=== PATIENT | female | born 1980 | race Caucasian/White ===

== ENCOUNTER 2016-11-13 10:14 | Emergency (ER) | payer OTHER ==
[2016-11-13 10:59] LABS: BASO % 0.2 % (0.1-1.2); EOS # 0.1 10_X3_uL (0.0-0.4); EOS % 0.6 % (0.7-5.8); GRAN # 12.4 10_X3_uL (1.6-6.1); GRAN % 71.9 % (34.0-71.1); HEMATOCRIT 43.4 % (34-45); HEMOGLOBIN 14.8 g/dL (11.2-15.7); LYMPH # 3.3 10_X3_uL (1.2-3.7); LYMPH % 19.1 % (19.3-51.7); MEAN CORPUSCULAR HEMOGLOBIN 29.8 pg (27.0-33.0); MEAN CORPUSCULAR HGB CONC 34.1 g/dL (32.0-36.0); MEAN CORPUSCULAR VOLUME 87.3 fL (79-95); MEAN PLATELET VOLUME 10.4 fl (7.5-11.5); MONO # 1.4 10_X3_uL (0.2-0.9); MONO % 8.2 % (4.7-12.5); PLATELET COUNT 287 x10_3/uL (182-369); RED BLOOD COUNT 4.97 x10_6/uL (3.9-5.2); RED CELL DISTRIBUTION WIDTH 13.4 % (11.7-14.4); WHITE BLOOD COUNT 17.2 x10_3/uL (4.0-10.0)
[2016-11-13 11:18] LABS: ALBUMIN 3.8 gm/dL (3.4-5.0); ALKALINE PHOSPHATASE 59 U/L (50-136); ALT/SGPT 21 U/L (3.5-33.9); AMYLASE 41 U/L (15.62-74.58); AST/SGOT 17 U/L (7.04-26.96); BILIRUBIN,TOTAL 0.46 mg/dL (0.0-1.0); BLOOD UREA NITROGEN 8 mg/dL (7-18); CALCIUM 8.6 mg/dL (8.7-10.7); CARBON DIOXIDE 25 mmol/L (21-32); CREATININE 0.5 mg/dL (0.6-1.3); GLUCOSE,RANDOM 98 mg/dL (70-99); LIPASE 20 U/L (6.75-60.75); POTASSIUM 3.8 mmol/L (3.5-5.1); SODIUM 137 mmol/L (136-145)
== END 2016-11-13 11:15 | disposition left against medical advice (07) ==
LOC: ER 10:14
PROVIDERS: General Practice
DX: R10.11 Right upper quadrant pain (principal); R10.32 Left lower quadrant pain; R10.30 Lower abdominal pain, unspecified; R11.2 Nausea with vomiting, unspecified; E66.01 Morbid (severe) obesity due to excess calories; F17.210 Nicotine dependence, cigarettes, uncomplicated
CPT/HCPCS: 36415; 80053; 82150; 83690; 85025; 96374; 99070; 99283-25